=== PATIENT | female | born 1985 | race Caucasian/White ===

== ENCOUNTER 2018-10-18 14:35 | Inpatient (IN) | payer BC ==
[~2018-10-18] VITALS: Ht 172.7 cm; Wt 81.6 kg
[2018-10-18 14:46] VITALS: BP 106/73
[2018-10-18 14:56] LABS: URINE BILIRUBIN NEGATIVE (Negative); URINE BLOOD 2+ (Negative); URINE CLARITY CLEAR; URINE COLOR YELLOW; URINE GLUCOSE-RANDOM NEGATIVE (Negative); URINE KETONES NEGATIVE (Negative); URINE LEUKOCYTES-REFLEX TRACE (Negative); URINE NITRITE-REFLEX NEGATIVE (Negative); URINE PROTEIN NEGATIVE (Negative); URINE UROBILINOGEN 0.2 E.U./dl (0.2-1.0)
[2018-10-18 15:05] LABS: HEMATOCRIT 40.7 % (37.0-47.0); HEMOGLOBIN 13.7 gm/dL (12.0-15.0); MCH 28.8 pg (26.0-34.0); MCHC 33.6 g/dL (28.0-37.0); MCV 85.7 fL (80.0-100.0); MPV 9.6 fl. (7.2-11.1); NUCLEATED RBCS 0 /100WBC; PLATELET COUNT* 226 thou/uL (150-400); RBC 4.75 mil/uL (4.20-5.00); RDW-CV 13.9 % (10.5-14.5); WBC 7.5 thou/uL (4.0-11.0)
[2018-10-18 15:12] LABS: SQUAMOUS >10 Many /LPF (0-3)
[2018-10-18 15:13] LABS: APTT 26.1 Seconds (25.0-31.3); INR 1.1; PROTIME 10.8 Seconds (9.20-11.50)
[2018-10-18 15:15] LABS: HYALINE CASTS 0-3 Few /LPF (None Seen); MUCUS 0-3 Light strn/LPF (None Seen); URINE WBC-REFLEX 0-5 Rare /HPF (0-5)
[2018-10-18 15:16] LABS: BACTERIA-REFLEX 1-9 Few /HPF (None Seen)
[2018-10-18 15:17] LABS: CRYSTALS None Seen /LPF (None Seen); URINE RBC 0-2 Rare /HPF (0-2)
[2018-10-18 15:21] LABS: AMP/METHAMP POSITIVE (Negative); BARBITURATES Negative (Negative); BENZODIAZEPINES Negative (Negative); COCAINE Negative (Negative); METHADONE Negative (Negative); OPIATES Negative (Negative); PCP Negative (Negative); THC Negative (Negative)
[2018-10-18 15:21] LABS: ALBUMIN 3.5 g/dL (3.4-5.0); CALCIUM 8.8 mg/dL (8.5-10.1); CREATININE 0.8 mg/dL (0.6-1.3); TOTAL BILIRUBIN 0.5 mg/dL (<0.1-1.0); TOTAL PROTEIN 7.2 g/dL (6.4-8.2)
[2018-10-18 15:28] LABS: SALICYLATE < 2.8 mg/dL (2.8-20.0)
[2018-10-18 15:31] LABS: ABSOLUTE EOSINOPHILS 0.8 thou/uL (0.0-0.7); ABSOLUTE LYMPHOCYTES 2.9 thou/uL (0.8-5.3); ABSOLUTE MONOCYTES 0.3 thou/uL (0.0-1.2); ABSOLUTE NEUTROPHILS 3.5 thou/uL (1.6-8.1)
[2018-10-18 15:32] LABS: ALCOHOL < 10 mg/dL (<10); PLATELET ESTIMATE ADEQUATE
[2018-10-18 15:33] LABS: ACETAMINOPHEN 274 ug/mL (10-30)
[2018-10-18 16:38] VITALS: BP 107/72
[2018-10-18] MEDS ORDERED: KEPPRA 500 MG500 M1 PO (17:01)
[2018-10-18] MEDS ORDERED: METFORMIN HCL500 MG PO (17:01)
[2018-10-18] MEDS ORDERED: TIROSINT25 MCG PO (17:02)
[2018-10-18] MEDS ORDERED: WELLBUTRIN SR100 MG PO (17:55)
[2018-10-18 20:00] VITALS: BP 85/44
[2018-10-18 21:00] VITALS: BP 90/54
[2018-10-18 22:00] VITALS: BP 116/59
[2018-10-18 23:00] VITALS: BP 108/54
[2018-10-19] VITALS (9 sets, daily range): BP systolic 100–123; BP diastolic 45–77
[2018-10-19 03:38] LABS: ABSOLUTE EOSINOPHILS 0.3 thou/uL (0.0-0.7); ABSOLUTE LYMPHOCYTES 1.9 thou/uL (0.8-5.3); ABSOLUTE MONOCYTES 0.7 thou/uL (0.0-1.2); ABSOLUTE NEUTROPHILS 5.9 thou/uL (1.6-8.1); BASOPHILS 0.5 %; EOSINOPHILS 3.8 %; HEMATOCRIT 37.4 % (37.0-47.0); HEMOGLOBIN 12.5 gm/dL (12.0-15.0); LYMPHOCYTES 21.6 %; MCH 28.7 pg (26.0-34.0); MCHC 33.5 g/dL (28.0-37.0); MCV 85.5 fL (80.0-100.0); MONOCYTES 7.4 %; MPV 9.9 fl. (7.2-11.1); NUCLEATED RBCS 0 /100WBC; PLATELET COUNT* 201 thou/uL (150-400); POLYS 66.7 %; RBC 4.37 mil/uL (4.20-5.00); RDW-CV 13.8 % (10.5-14.5); WBC 8.9 thou/uL (4.0-11.0)
[2018-10-19 03:58] LABS: ALBUMIN 2.9 g/dL (3.4-5.0); CALCIUM 7.9 mg/dL (8.5-10.1); CREATININE 0.8 mg/dL (0.6-1.3); POTASSIUM 3.3 mmol/L (3.5-5.1); TOTAL BILIRUBIN 0.3 mg/dL (<0.1-1.0); TOTAL PROTEIN 6.3 g/dL (6.4-8.2)
[2018-10-19 23:11] LABS: GLYCOHEMOGLOBIN (HGB A1C) 5.1 % (4.8-5.6)
[2018-10-20 03:53] LABS: HEMATOCRIT 39.1 % (37.0-47.0); MCH 28.9 pg (26.0-34.0); MCHC 33.3 g/dL (28.0-37.0); MCV 86.9 fL (80.0-100.0); RBC 4.5 mil/uL (4.20-5.00); RDW-CV 13.8 % (10.5-14.5); WBC 7.4 thou/uL (4.0-11.0)
[2018-10-20 04:32] LABS: ALBUMIN 3.2 g/dL (3.4-5.0); CALCIUM 8.1 mg/dL (8.5-10.1); CREATININE 0.7 mg/dL (0.6-1.3); TOTAL BILIRUBIN 0.2 mg/dL (<0.1-1.0); TOTAL PROTEIN 6.6 g/dL (6.4-8.2)
[2018-10-20 04:40] LABS: POTASSIUM 3.9 mmol/L (3.5-5.1)
[2018-10-20 08:15] VITALS: BP 112/70
[2018-10-20 17:20] VITALS: BP 105/63
[2018-10-20 20:00] VITALS: BP 120/77
[2018-10-21 04:28] LABS: ALBUMIN 3.1 g/dL (3.4-5.0); CALCIUM 8.6 mg/dL (8.5-10.1); CREATININE 0.8 mg/dL (0.6-1.3); POTASSIUM 4.3 mmol/L (3.5-5.1); TOTAL BILIRUBIN 0.2 mg/dL (<0.1-1.0); TOTAL PROTEIN 6.1 g/dL (6.4-8.2)
[2018-10-21 08:00] VITALS: BP 89/42
[2018-10-21 15:36] VITALS: BP 94/45
[2018-10-21 20:30] VITALS: BP 106/69
[2018-10-22 08:00] VITALS: BP 92/55
[2018-10-22] MEDS ORDERED: LORAZEPAM2 MG/1 M1 IVPUSH (09:48)
[2018-10-22] MEDS ORDERED: ATIVAN1 MG PO (09:58)
[2018-10-22 11:35] VITALS: BP 92/55
== END 2018-10-22 16:53 | DRG 918 ==
LOC: M.ERS 14:35 → M.ORTHSURG 15:41 → M.TBA-ER 15:41 → M.ICU 15:41 → M.ERS 15:41 → M.TBA-ER 17:08 → M.ICU 17:08 → M.ORTHSURG 10-19 10:16
PROVIDERS: Emergency Medicine Emergency Medical Services; Family Medicine; ADMIT Family Medicine
DX: T39.1X2A Poisoning by 4-Aminophenol derivatives, intentional self-harm, initial encounter (principal); E03.9 Hypothyroidism, unspecified; G40.909 Epilepsy, unspecified, not intractable, without status epilepticus; E28.2 Polycystic ovarian syndrome; E87.6 Hypokalemia; E83.42 Hypomagnesemia; N20.0 Calculus of kidney; F17.210 Nicotine dependence, cigarettes, uncomplicated; F39 Unspecified mood [affective] disorder; Y92.89 Other specified places as the place of occurrence of the external cause; Z79.899 Other long term (current) drug therapy